=== PATIENT | female | born 1960 | race Asian ===

== ENCOUNTER 2019-08-05 17:51 | Inpatient (IN) | payer MEDICARE, MEDICAID ==
[~2019-08-05] VITALS: Ht 157.5 cm; Wt 54.0 kg
[2019-08-05] MEDS ORDERED: DIVA500T2 PO (17:59)
[2019-08-05] MEDS ORDERED: TEMA30CA PO (17:59)
[2019-08-05] MEDS ORDERED: CLONAZEPAM PO (17:59)
[2019-08-05] MEDS ORDERED: ZIPR80CA2 PO (17:59)
--- NOTE | 2019-08-05 18:10 | NUR ---
BIB PVT AMB FROM [facility] ON A 5150 HOLD FOR GD. A/OX3. SPEECH IS CLEAR, SPEAKS IN COMPLETE SENTENCES. NO ACUTE NEURO DEFICITS NOTED. RESPIRATORY EVEN AND UNLABORED, NO COUGH NO SOB. NO CARDIOVASCULAR DISTRESS NOTED, ALL PULSES PALPABLE. DENIES ANY N/V/D.
--- NOTE | 2019-08-05 18:31 | NUR ---
REPORT GIVEN TO WALT RUANO
[2019-08-05] MEDS ORDERED: MAGNESIUM HYDROXIDE 30 ML LIQUID UDC PO PRN (18:45)
[2019-08-05] MEDS ORDERED: BLOOD SUGAR DIAGNOSTIC 1 EACH STRIP VI ONE (18:45)
[2019-08-05] MEDS ORDERED: MAG HYDROX/AL HYDROX/SIMETH 30 ML LIQUID UDC PO PRN (18:45)
[2019-08-05 18:49] VITALS: BP 136/88
[2019-08-05] MEDS: LORAZEPAM 0.5 MG TABLET PO PRN (20:28)
--- NOTE | 2019-08-05 21:00 | NUR ---
GPS: Admitted to unit earlier a 58 yr.old female on a 72 hour hold for GD. Pt.is under the care of (psychiatrist). Pt. has been agitated,paranoid and unable to provide a viable plan of self care ,per hold. Pt.is uncooperative,anxious, bizarre,positive for AH/V/H and attention-seeking. A/O x2. Poor insight to present situation. Needs frequent re-direction from staff. Pt's advisement and pt's rights handbook given to pt. Instructed on meal schedules,visiting hours,phone use and what's expected from her. Pt's mother "Maryann"made aware of pt's admission to the unit with pt's consent. Safety emphasized. Will monitor behavior closely.
[2019-08-05] MEDS: TEMAZEPAM 7.5 MG CAPSULE PO PRN (22:00)
[2019-08-06 07:30] VITALS: BP 113/45
[2019-08-06 15:09] VITALS: BP 90/56
[2019-08-06] MEDS: LORAZEPAM 0.5 MG TABLET PO PRN (16:07)
--- NOTE | 2019-08-06 16:26 | NUR ---
Initial discharge plan: Per pt, she lives alone in her personal apartment located at [facility] [address], [place] [address]; [phone]. However, pt states that she no longer feels safe living alone because "people come in and steal my things... I am not safe there." Pt would like help securing an assisted living facility after discharge. Building Maintenance Worker will plan to discuss placement options with pt for discharge planning. Building Maintenance Worker will continue to work on a safe and proper discharge plan for pt
--- NOTE | 2019-08-06 16:41 | NUR ---
food counter worker called pt's next of kin and person to notify on her face sheet, pts mother Maryann Sultana at [phone], however there was no answer and the voice mail was full. SW unable to leave voice mail message, SW will attempt to contact pts mother again at a later time.
[2019-08-06] MEDS: DIVALPROEX 250 MG TABLET.DR PO SCH (18:37)
[2019-08-06 20:03] VITALS: BP 116/56
[2019-08-06] MEDS: ZIPRASIDONE 20 MG CAPSULE PO SCH (20:12)
[2019-08-06] MEDS ORDERED: ZIPRASIDONE 80 MG CAPSULE PO SCH (21:00)
[2019-08-07] MEDS: TEMAZEPAM 7.5 MG CAPSULE PO PRN ×2 (00:32→23:20)
[2019-08-07] MEDS: ACETAMINOPHEN 325 MG TABLET PO PRN ×3 (00:36→16:27)
[2019-08-07 07:27] LABS: BASOPHILS % (AUTO) 0.5 % (0.0-2.0); EOSINOPHILS # (AUTO) 0.1 K/uL (0.0-0.7); EOSINOPHILS % (AUTO) 1.7 % (0.0-7.0); HEMATOCRIT 34.4 % (31.2-41.9); HEMOGLOBIN 11.6 g/dL (10.9-14.3); LYMPHOCYTES # (AUTO) 2.1 K/uL (20.0-40.0); LYMPHOCYTES % (AUTO) 35.7 % (20.5-51.5); MEAN CORPUSCULAR HEMOGLOBIN 30.6 uug (24.7-32.8); MEAN CORPUSCULAR HGB CONC 34 g/dL (32.3-35.6); MEAN CORPUSCULAR VOLUME 90.7 fL (75.5-95.3); MONOCYTES # (AUTO) 0.8 K/uL (2.0-10.0); MONOCYTES % (AUTO) 13.6 % (0.0-11.0); NEUTROPHILS # (AUTO) 2.9 K/uL (1.8-8.9); NEUTROPHILS % (AUTO) 48.5 % (38.5-71.5); PLATELET COUNT (AUTO) 287 K/uL (179-408); RED BLOOD CELL COUNT(AUTO) 3.79 MIL/uL (3.63-4.92)
[2019-08-07 07:39] LABS: CREATININE 0.8 mg/dL (0.6-1.3); MAGNESIUM 1.8 mg/dL (1.8-2.4); PHOSPHOROUS 4.3 mg/dL (2.5-4.9); POTASSIUM 4.2 mmol/L (3.5-5.1)
[2019-08-07 07:51] VITALS: BP 111/64
[2019-08-07] MEDS: DIVALPROEX 250 MG TABLET.DR PO SCH (08:34)
[2019-08-07] MEDS: ZIPRASIDONE 20 MG CAPSULE PO SCH ×2 (08:35→20:02)
[2019-08-07] MEDS: LORAZEPAM 0.5 MG TABLET PO PRN (10:04)
--- NOTE | 2019-08-07 15:40 | NUR ---
FIREARMS REPORT: Director Of Vocational Training completed and submitted a [employer] firearms report for 5150 grave disability certification. A copy of report has been placed in patient chart.
[2019-08-07 16:36] VITALS: BP 100/59
[2019-08-07] MEDS: DIVALPROEX 500 MG TABLET.DR PO SCH (16:40)
[2019-08-07] MEDS ORDERED: DIVALPROEX 250 MG TABLET.DR PO SCH (17:00)
[2019-08-07 21:00] VITALS: BP 140/54
--- NOTE | 2019-08-07 22:00 | NUR ---
received to care, highly visible on unit, needy, hypersexual, hyperverbal, attention seeking, but pleasant upon approach. makes many multiple requests. needs frequent limit setting. as of 2199, she remains awake. no distress noted.
--- NOTE | 2019-08-07 23:20 | NUR ---
PRN restoril given for insomnia
--- NOTE | 2019-08-08 01:00 | NUR ---
appears to be asleep.
[2019-08-08] MEDS: LORAZEPAM 0.5 MG TABLET PO PRN ×3 (02:01→19:49)
--- NOTE | 2019-08-08 02:01 | NUR ---
PRN ativan given for restlessness
[2019-08-08] MEDS: ACETAMINOPHEN 325 MG TABLET PO PRN (05:01)
--- NOTE | 2019-08-08 06:00 | NUR ---
slept 1.5 hours total.
[2019-08-08 07:30] VITALS: BP 114/61
[2019-08-08] MEDS: DIVALPROEX 500 MG TABLET.DR PO SCH ×2 (09:09→17:04)
[2019-08-08] MEDS: ZIPRASIDONE 20 MG CAPSULE PO SCH ×2 (09:09→20:38)
--- NOTE | 2019-08-08 16:00 | NUR ---
Gps/Textile Chemist- Attended group therapy, likes to listen to music per patient. Medications compliant . Making her needs known to staff. Easily gets anxious , gets restless, and figity, redirectable.
[2019-08-08 16:23] VITALS: BP 103/46
[2019-08-08 21:00] VITALS: BP 116/63
--- NOTE | 2019-08-08 22:00 | NUR ---
received to care, appearing angry, verbally hostile, difficult to redirect. PRN samy was given at 1948. around 2029, she came out of her room, yelling and cursing at staff, posturing with closed fists. pt was redirected back to her room, and calmed down on her own, and even apologized for her previous behaviors. as of 2199, she appears to be asleep. no distress noted. will continue to monitor closely.
[2019-08-09] MEDS: TEMAZEPAM 7.5 MG CAPSULE PO PRN ×2 (01:58→22:12)
--- NOTE | 2019-08-09 01:58 | NUR ---
pt is now awake, requesting snacks, which she was given, along with PRN restoril, for insomnia. she is currently in her room, eating. no distress noted. will continue to monitor closely.
[2019-08-09] MEDS: LORAZEPAM 0.5 MG TABLET PO PRN ×3 (03:17→19:44)
--- NOTE | 2019-08-09 03:17 | NUR ---
remains awake, but slightly calmer. PRN ativan was given at her request.
--- NOTE | 2019-08-09 06:00 | NUR ---
slept 6.25 hours. continues to sleep. no distress noted.
[2019-08-09 07:24] LABS: BILIRUBIN,TOTAL 0.2 mg/dL (0.2-1.0); CREATININE 0.7 mg/dL (0.6-1.3); POTASSIUM 4.5 mmol/L (3.5-5.1); TOTAL PROTEIN, SERUM 6.5 g/dL (6.4-8.2)
[2019-08-09 07:30] VITALS: BP 95/66
[2019-08-09 07:31] LABS: BASOPHILS # (AUTO) 0.1 K/uL (0.0-8.0); BASOPHILS % (AUTO) 1.2 % (0.0-2.0); EOSINOPHILS # (AUTO) 0.1 K/uL (0.0-0.7); EOSINOPHILS % (AUTO) 2.5 % (0.0-7.0); HEMATOCRIT 32.3 % (31.2-41.9); HEMOGLOBIN 10.7 g/dL (10.9-14.3); LYMPHOCYTES # (AUTO) 1.7 K/uL (20.0-40.0); LYMPHOCYTES % (AUTO) 40.5 % (20.5-51.5); MEAN CORPUSCULAR HGB CONC 33 g/dL (32.3-35.6); MEAN CORPUSCULAR VOLUME 93.4 fL (75.5-95.3); MONOCYTES # (AUTO) 0.5 K/uL (2.0-10.0); MONOCYTES % (AUTO) 12.8 % (0.0-11.0); NEUTROPHILS # (AUTO) 1.8 K/uL (1.8-8.9); PLATELET COUNT (AUTO) 261 K/uL (179-408); RED BLOOD CELL COUNT(AUTO) 3.46 MIL/uL (3.63-4.92)
[2019-08-09 07:39] LABS: WHITE BLOOD COUNT (AUTO) 4.3 K/uL (3.8-11.8)
[2019-08-09] MEDS: ZIPRASIDONE 20 MG CAPSULE PO SCH ×2 (08:38→21:06)
[2019-08-09] MEDS: DIVALPROEX 500 MG TABLET.DR PO SCH ×3 (08:38→21:06)
[2019-08-09 16:53] VITALS: BP 123/73
--- NOTE | 2019-08-09 17:00 | NUR ---
Gps/Technical Implementation Lead- Talkative, constantly talking , making funny gestures. Compliant with her routine meds. Needed redirections from time to time, kept asking for foods. Inappropriately laughing for no reasons.
[2019-08-09 20:08] VITALS: BP 124/49
[2019-08-10] MEDS: ACETAMINOPHEN 325 MG TABLET PO PRN ×3 (04:16→23:18)
[2019-08-10 07:30] VITALS: BP 104/79
[2019-08-10] MEDS: ZIPRASIDONE 20 MG CAPSULE PO SCH (08:21)
[2019-08-10] MEDS: DIVALPROEX 500 MG TABLET.DR PO SCH ×3 (08:21→20:34)
[2019-08-10] MEDS: OLANZAPINE 2.5 MG TABLET PO SCH ×2 (12:46→17:03)
[2019-08-10 16:00] VITALS: BP 108/52
--- NOTE | 2019-08-10 20:00 | NUR ---
RECEIVED PATIENT IN THE HALLWAY. SHE IS NOTED A/O X 2. INCONGRUENT AFFECT: LAUGHING INAPPROPRIATELY, HYPERVERBAL, FLIGHT OF IDEAS, BIZARRE MOVES AND FACIAL EXPRESSIONS. PATIENT IS SOMEWHAT REDIRECTABLE, SOMEWHAT BETTER. NO AGGRESSIVE/COMBATIVE BX NOTED AT THIS TIME. V/S STABLE AT THIS TIME. PT IS REASSURED FOR HER SAFETY. SAFETY AND FALL PRECAUTION IN PLACE. WILL CONTINUE TO MONITOR.
[2019-08-10 20:19] VITALS: BP 103/53
[2019-08-10] MEDS: OLANZAPINE 5 MG TABLET PO SCH (20:33)
[2019-08-10] MEDS: TEMAZEPAM 7.5 MG CAPSULE PO PRN (23:22)
[2019-08-11 08:26] VITALS: BP 120/69
[2019-08-11] MEDS: OLANZAPINE 2.5 MG TABLET PO SCH (09:51)
[2019-08-11] MEDS: DIVALPROEX 500 MG TABLET.DR PO SCH ×3 (09:51→20:48)
[2019-08-11] MEDS: OLANZAPINE 5 MG TABLET PO SCH ×3 (12:56→20:48)
[2019-08-11] MEDS ORDERED: OLANZAPINE 2.5 MG TABLET PO SCH (13:00)
[2019-08-11 18:14] VITALS: BP 120/40
--- NOTE | 2019-08-11 20:00 | NUR ---
RECEIVED PATIENT IN THE HALLWAY SITTING IN A CHAIR. SHE IS NOTED A/O X 2. CONTINUE HYPERVERBAL, INCONGRUENT MOOD AND LABILE. CONTINUE WITH BIZARRE BX. BIZARRE MOVEMENTS. UNPREDICTABLE. PATIENT TALKS TO HERSELF AND SHE APPEARS TO HEAR VOICES. PT DENIES SI/VH/HI/AH. V/S STABLE AT THIS TIME. PT IS REASSURED FOR HER SAFETY. SAFETY AND FALL PRECAUTION IN PLACE. WILL CONTINUE TO MONITOR.
[2019-08-11 20:07] VITALS: BP 116/87
[2019-08-12 07:30] VITALS: BP 112/58
[2019-08-12] MEDS: DIVALPROEX 500 MG TABLET.DR PO SCH ×3 (08:39→20:00)
[2019-08-12] MEDS: OLANZAPINE 5 MG TABLET PO SCH ×3 (08:39→20:00)
[2019-08-12 15:29] VITALS: BP 114/68
[2019-08-12 20:00] VITALS: BP 104/71
[2019-08-13 07:30] VITALS: BP 115/79
[2019-08-13] MEDS: DIVALPROEX 500 MG TABLET.DR PO SCH ×3 (08:55→20:11)
[2019-08-13] MEDS: OLANZAPINE 5 MG TABLET PO SCH ×3 (08:55→20:11)
[2019-08-13 15:20] VITALS: BP 138/86
[2019-08-13 20:21] VITALS: BP 127/70
[2019-08-13] MEDS: ACETAMINOPHEN 325 MG TABLET PO PRN (20:52)
[2019-08-13] MEDS: TEMAZEPAM 7.5 MG CAPSULE PO PRN (21:26)
[2019-08-14] MEDS: LORAZEPAM 0.5 MG TABLET PO PRN ×2 (01:20→08:56)
--- NOTE | 2019-08-14 05:27 | NUR ---
Patient up most of the night with a total of 4 hours sleep.Up and down hallway asking to shower, and many other small requests. Hyperverbal and in a manic state. Continually redirecting patient back to room and setting boundaries. Patient is laying down at this time, no distress noted.
[2019-08-14] MEDS: OLANZAPINE 5 MG TABLET PO SCH ×3 (07:40→20:22)
[2019-08-14 07:44] VITALS: BP 99/55
[2019-08-14] MEDS: DIVALPROEX 500 MG TABLET.DR PO SCH ×3 (08:11→20:22)
[2019-08-14 16:17] VITALS: BP 119/79
--- NOTE | 2019-08-14 16:45 | NUR ---
GPS: patient AOx2, compliant with medication,patient was able to redirected when patient starts to be intrusive in nursing station, denies SI and Hi, no distress noted
[2019-08-14 20:10] VITALS: BP 108/50
[2019-08-15] MEDS: TEMAZEPAM 7.5 MG CAPSULE PO PRN ×2 (00:58→22:57)
--- NOTE | 2019-08-15 07:40 | NUR ---
Recieved pt in her bed, awake, alert and orientedx3. Appears to be hyperactive but very pleasant. Pacing back and forth on the hallway. She is not harmful with anybody. Compliant.
[2019-08-15 07:56] VITALS: BP 99/52
[2019-08-15] MEDS: OLANZAPINE 5 MG TABLET PO SCH ×3 (08:00→20:12)
[2019-08-15 09:07] LABS: EOSINOPHILS # (AUTO) 0.1 K/uL (0.0-0.7); EOSINOPHILS % (AUTO) 2.3 % (0.0-7.0); HEMATOCRIT 34.9 % (31.2-41.9); HEMOGLOBIN 11.3 g/dL (10.9-14.3); LYMPHOCYTES # (AUTO) 1.6 K/uL (20.0-40.0); LYMPHOCYTES % (AUTO) 37.8 % (20.5-51.5); MEAN CORPUSCULAR HEMOGLOBIN 30.6 uug (24.7-32.8); MEAN CORPUSCULAR HGB CONC 33 g/dL (32.3-35.6); MEAN CORPUSCULAR VOLUME 94.3 fL (75.5-95.3); MONOCYTES # (AUTO) 0.5 K/uL (2.0-10.0); MONOCYTES % (AUTO) 12.2 % (0.0-11.0); NEUTROPHILS % (AUTO) 46.7 % (38.5-71.5); PLATELET COUNT (AUTO) 258 K/uL (179-408); WHITE BLOOD COUNT (AUTO) 4.3 K/uL (3.8-11.8)
[2019-08-15] MEDS: DIVALPROEX 500 MG TABLET.DR PO SCH ×3 (09:21→20:13)
[2019-08-15 09:52] LABS: BILIRUBIN,TOTAL 0.3 mg/dL (0.2-1.0); CREATININE 0.7 mg/dL (0.6-1.3)
--- NOTE | 2019-08-15 13:00 | NUR ---
Pt's mother and step father came in to visit her. Pt ate good lunch.
--- NOTE | 2019-08-15 15:19 | NUR ---
Received consult from Dr. Cheung. Pt is on a regular diet, no nutrition support. Addendum: 08/15/19 at [address] Amended: Links added.
[2019-08-15 16:00] VITALS: BP 101/72
[2019-08-15 20:34] VITALS: BP 124/76
--- NOTE | 2019-08-16 06:58 | NUR ---
PT SLEPT 6.45 HOURS. PT SHOWS NO SIGNS OF ACUTE DISTRESS. PT COMPLIANT WITH CARE. PRESCRIBED MEDICATION GIVEN AND PT TOLERATED IT WELL. PT KEEPS COMING BACK AND FORTH TO THE NURSING STATION TO GET SOME SNACKS. SAFETY AND COMFORT PROVIDED. WILL ENDORSE TO INCOMING NURSE FOR CONTINUITY OF CARE.
[2019-08-16 07:30] VITALS: BP 94/46
[2019-08-16] MEDS: DIVALPROEX 500 MG TABLET.DR PO SCH ×3 (09:06→20:38)
[2019-08-16] MEDS: OLANZAPINE 5 MG TABLET PO SCH ×3 (09:07→20:37)
[2019-08-16 15:24] VITALS: BP 120/76
--- NOTE | 2019-08-16 20:00 | NUR ---
Patient received into care, standing at nursing station, alert/oriented x3. Patient has no complaints of pain or discomfort at this time. All safety and fall precaution measures are in place. Will continue to monitor.
[2019-08-16 20:25] VITALS: BP 116/65
[2019-08-16] MEDS: ACETAMINOPHEN 325 MG TABLET PO PRN (22:02)
--- NOTE | 2019-08-17 06:27 | NUR ---
Patient slept for 4.00 hours this shift with intermittent periods of wakefulness. Patient was seen speaking to illusions during this shift but was compliant with all aspects of care and medicine regimen. Patient has been easily redirectable when displaying inappropriate behaviors or verbalizing hypersexual comments. Patient complained of mouth pain at one time which was addressed with requested prescribed tylenol. All safety and fall precaution measures remain in place.
[2019-08-17 07:30] VITALS: BP 96/62
--- NOTE | 2019-08-17 07:30 | NUR ---
Recieved pt sitting in her room. Alert and orientedx3. Moods and behavior is very labile. Denies any suicidal ideation or thought to hurt others. Answers questions appropriately at this time.
[2019-08-17] MEDS: DIVALPROEX 500 MG TABLET.DR PO SCH ×3 (09:37→20:27)
[2019-08-17] MEDS: OLANZAPINE 5 MG TABLET PO SCH ×3 (09:37→20:27)
--- NOTE | 2019-08-17 13:00 | NUR ---
Pt is pacing back and forth in the hallway. Talks to herself occassionally but able to interact with others nicely.
[2019-08-17 15:09] VITALS: BP 106/64
--- NOTE | 2019-08-17 17:30 | NUR ---
Pt is self care and independent. Gait is steady. Denies of any c/o of pain.
[2019-08-17 23:18] VITALS: BP 117/65
--- NOTE | 2019-08-18 05:53 | NUR ---
Patient slept 5.30 hours. No issues or problems with behavior during the night. No distress. Patient back to bed at this time.
[2019-08-18 07:30] VITALS: BP 100/62
[2019-08-18] MEDS: OLANZAPINE 5 MG TABLET PO SCH ×3 (07:52→19:27)
[2019-08-18] MEDS: DIVALPROEX 500 MG TABLET.DR PO SCH ×3 (08:51→20:11)
--- NOTE | 2019-08-18 15:00 | NUR ---
Pt's parents came to visit Paulette. Pt was excited. According to mother, pt is not listening.
[2019-08-18 16:00] VITALS: BP 100/65
[2019-08-18 21:02] VITALS: BP 114/81
[2019-08-19 07:30] VITALS: BP 106/66
[2019-08-19] MEDS: OLANZAPINE 5 MG TABLET PO SCH ×3 (08:05→19:27)
[2019-08-19] MEDS: DIVALPROEX 500 MG TABLET.DR PO SCH ×3 (08:05→20:21)
[2019-08-19 15:15] VITALS: BP 106/68
--- NOTE | 2019-08-19 16:33 | NUR ---
Discharge Confirmation: bindery worker called logistics administrator Pj confirmed that pt will go to [facility], [[phone]], confirmed that pt will be accepted back to the facility once pt is ready to be discharged.
--- NOTE | 2019-08-19 18:32 | NUR ---
GPS: received patient AOx2-3, patient compliant to care and medication, denies SI and HI, able to redirect, patient stayed calm and cooperative throughout the day, no distress noted
[2019-08-19] MEDS: ACETAMINOPHEN 325 MG TABLET PO PRN (19:27)
[2019-08-19 20:00] VITALS: BP 110/71
--- NOTE | 2019-08-20 07:01 | NUR ---
PT SLEPT3.3 HOURS. PT IN NO ACUTE DISTRESS. PRESCRIBED MEDICATION GIVEN AND PT TOLERATED IT WELL. SAFETY AND COMFORT PROVIDED. WILL ENDORSE TO INCOMING NURSE FOR CONTINUITY OF CARE.
[2019-08-20 07:30] VITALS: BP 125/61
[2019-08-20] MEDS: OLANZAPINE 5 MG TABLET PO SCH ×2 (08:16→12:38)
--- NOTE | 2019-08-20 08:30 | NUR ---
Pt is awake, alert and oriented x3. Self care, ambulatory. No SI noted. Pt is pacing back and forth and at times laughs by herself but she is very pleasant.
--- NOTE | 2019-08-20 09:00 | NUR ---
Plan for discharge by 1500 per SW. Family notified and discharge order done by Dr Hanson.
--- NOTE | 2019-08-20 10:04 | NUR ---
DISCHARGE NOTE: Patient will be discharged to custodial facility, [facility] [[address], [place] [address]; ] via Ambulance transportation. Please arrange Ambulance transportation for patient to be picked up at 3:00pm. Band Attacher spoke with Juli [Baker Pie at [facility]; ([phone]], who stated patient will be accepted back at facility today. SW contacted pts, mother Enrique, ([phone]) and left a voicemail in regards to pts discharge. Patient is alert and oriented x3-4 and is unable to plan for self-care. Patient denies any suicidal or homicidal ideations. Patient is aware and agreeable with discharge plans. Patient will continue to follow-up with Psychiatrist Dr. Hanson and Paper Bag Making Machinist Dr. Alvarez at [facility] [[address], [place] [address]; ]. Patient was provided with mental health referrals to [facility] Crisis Line and the National Suicide Prevention Lifeline . Pt is congruent and cooperative.
[2019-08-20] MEDS: DIVALPROEX 500 MG TABLET.DR PO SCH (12:38)
--- NOTE | 2019-08-20 14:00 | NUR ---
Report given to Nancy renee the phone from [facility].
--- NOTE | 2019-08-20 15:00 | NUR ---
Pt is discharged to [facility] via ambulance. All belongings given back to pt. Condition is stable and pt understands where she is going. Family is aware.
== END 2019-08-20 15:00 | DRG 885 ==
LOC: ER 18:06 → GPS 18:20
PROVIDERS: ADMIT Psychiatry & Neurology Psychosomatic Medicine; ATTEND Internal Medicine
DX: F25.0 Schizoaffective disorder, bipolar type (principal); E44.1 Mild protein-calorie malnutrition; D53.9 Nutritional anemia, unspecified; Z79.899 Other long term (current) drug therapy; R26.81 Unsteadiness on feet; R53.1 Weakness; S06.9X0S Unspecified intracranial injury without loss of consciousness, sequela; Y09 Assault by unspecified means
CPT/HCPCS: 36415; 71045; 80164; 83735; 84100; 85025; 93005; A4663; J3490

== ENCOUNTER 2019-09-02 18:19 | Inpatient (IN) | payer MEDICARE, OTHER ==
[~2019-09-02] VITALS: Ht 165.1 cm; Wt 61.2 kg
[2019-09-02] MEDS ORDERED: DEPAKOTE (18:27)
[2019-09-02] MEDS ORDERED: ZYPREXA (18:27)
--- NOTE | 2019-09-02 18:35 | NUR ---
DR Gee seen and examined the pt.
--- NOTE | 2019-09-02 18:42 | NUR ---
Pt walked w/ steady gait to bathroom. Urine collected and sent to LAB.
[2019-09-02 18:52] LABS: BASOPHILS # (AUTO) 0.1 K/uL (0.0-8.0); BASOPHILS % (AUTO) 0.9 % (0.0-2.0); EOSINOPHILS # (AUTO) 0.2 K/uL (0.0-0.7); EOSINOPHILS % (AUTO) 2.9 % (0.0-7.0); HEMATOCRIT 33.6 % (31.2-41.9); HEMOGLOBIN 11.1 g/dL (10.9-14.3); LYMPHOCYTES # (AUTO) 2.2 K/uL (20.0-40.0); LYMPHOCYTES % (AUTO) 32.1 % (20.5-51.5); MEAN CORPUSCULAR HEMOGLOBIN 31.1 uug (24.7-32.8); MEAN CORPUSCULAR HGB CONC 33 g/dL (32.3-35.6); MEAN CORPUSCULAR VOLUME 93.8 fL (75.5-95.3); MONOCYTES # (AUTO) 0.9 K/uL (2.0-10.0); MONOCYTES % (AUTO) 12.6 % (0.0-11.0); NEUTROPHILS # (AUTO) 3.5 K/uL (1.8-8.9); NEUTROPHILS % (AUTO) 51.5 % (38.5-71.5); PLATELET COUNT (AUTO) 291 K/uL (179-408); RED BLOOD CELL COUNT(AUTO) 3.58 MIL/uL (3.63-4.92); WHITE BLOOD COUNT (AUTO) 6.9 K/uL (3.8-11.8)
--- NOTE | 2019-09-02 18:53 | NUR ---
[place] and fluid provided. Pt speaking on the phone.
--- NOTE | 2019-09-02 19:09 | NUR ---
Assumed care for patient, safe environment implemented. Pt on a 5150 for DTO. Pt alert, NAD, ambulatory with stable gait. VSS.
[2019-09-02 19:31] LABS: ALANINE AMINOTRANSFERASE 13 U/L (14-59); ALKALINE PHOSPHATASE 153 U/L (50-136); ASPARTATE AMINOTRANSFERASE 13 U/L (15-37); BILIRUBIN,DIRECT 0.1 mg/dL (0.0-0.2); BILIRUBIN,TOTAL 0.1 mg/dL (0.2-1.0); CARBON DIOXIDE 32 mmol/L (21-32); CHLORIDE 106 mmol/L (98-107); CREATININE 0.7 mg/dL (0.6-1.3); GLUCOSE 85 mg/dL (74-106); POTASSIUM 4.5 mmol/L (3.5-5.1); TOTAL PROTEIN, SERUM 7.3 g/dL (6.4-8.2); UREA NITROGEN, BLOOD 20 mg/dL (7-18)
[2019-09-02 19:33] LABS: ACETAMINOPHEN < 2.0 ug/mL (10-30)
[2019-09-02 19:35] LABS: ETHANOL < 3 MG/DL (0-0)
[2019-09-02 19:37] LABS: *CLARITY,URINE CLEAR (CLEAR); *COLOR,URINE YELLOW (YELLOW); *KETONES,URINE NEGATIVE (NEGATIVE); *UROBILINOGEN,URINE 0.2 E.U./dl (NORMAL); LEUKOCYTE ESTERASE ,URINE TRACE (NEGATIVE); NITRITE, URINE NEGATIVE (NEGATIVE); UGLUCOSE NEGATIVE (NEGATIVE)
[2019-09-02 19:45] LABS: *AMPHETAMINE, URINE NEGATIVE (NEGATIVE); *BARBITURATE, URINE NEGATIVE (NEGATIVE); *CANNABINOID, URINE NEGATIVE (NEGATIVE); *COCCAINE, URINE NEGATIVE (NEGATIVE); *OPIATE, URINE NEGATIVE (NEGATIVE); *PHENCYCLIDINE SCREEN,URINE NEGATIVE (NEGATIVE)
--- NOTE | 2019-09-02 19:48 | NUR ---
Pt. admitted to MHU , under care of Dr. Hanson/Dr. Amador Belongs List completed, MRSA swab done. Report given to Shira ARRINGTON
[2019-09-02 19:50] LABS: *BILIRUBIN,URIN NEGATIVE (NEGATIVE); *BLOOD, URINE NEGATIVE (NEGATIVE); BACTERIA,URINE NONE SEEN /HPF (NONE SEEN); RBC,URINE 0-3 /HPF (0-3); SQUAMOUS EPITHELIAL CELL,UR FEW /HPF (NONE SEEN); WBC,URINE 0-3 /HPF (0-3)
[2019-09-02 19:51] LABS: MUCUS,URINE FEW /LPF (0-FEW)
[2019-09-02] MEDS ORDERED: MAGNESIUM HYDROXIDE 30 ML LIQUID UDC PO PRN (20:15)
[2019-09-02] MEDS ORDERED: TEMAZEPAM 7.5 MG CAPSULE PO PRN (20:15)
[2019-09-02] MEDS ORDERED: MAG HYDROX/AL HYDROX/SIMETH 30 ML LIQUID UDC PO PRN (20:15)
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
--- NOTE | 2019-09-02 21:45 | NUR ---
Utility Bill Complaints Investigator Neftali notified of Pt admission, (+)UA, and the need for H&P.
[2019-09-03 00:56] VITALS: BP 130/71
--- NOTE | 2019-09-03 07:55 | NUR ---
approach patient and requested to surrender her contraband to the unit , patient wears 2 pairs of earrings , patient refused to surrender after explaining the Unit policy, ask for assistance with security to retrieve contraband, place contraband to the safe and accounted for, gave the yellow receipt to patient which patient threw away in the trash, patient exhibit manic behavior, will continue monitor
[2019-09-03] MEDS: LORAZEPAM 0.5 MG TABLET PO PRN (10:36)
[2019-09-03] MEDS: ACETAMINOPHEN 325 MG TABLET PO PRN (10:36)
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
--- NOTE | 2019-09-03 11:22 | NUR ---
Social work note/Facility Contact: silo worker contacted Radha from [facility], ([phone]) who expressed patient is welcomed back upon discharge.
--- NOTE | 2019-09-03 12:00 | NUR ---
Social work note/Family contact: chemical tank worker contacted patients mother Maryann, ([phone]) and left a voicemail in regards to patients treatment and discharge plan.
--- NOTE | 2019-09-03 14:22 | NUR ---
GPS: Nursing Notes: Destructive Behavior toward Others: Patient is awake and responding to her name, uncooperative with nursing care, poor anger management, poor impulse control, resistant with nursing care, loud and angry affect, hyperverbal, paranoid behavior, believes that we are stealing from her, verbal abusive, using profanities toward staff, internally preoccupied, talking and shouting to unseen others in her room, labile, unpredictable behavior, episodes of violent outburst without provocation, shouting and screaming in the middle of the hallway, threatening staff, "I am going to kill... ", also, stating "I don't want to live anymore... I have no reason to live..", episodes of laughing inappropriately, loud and disruptive, unable to formulate a viable plan for self care, continue with treatment plan.
[2019-09-03] MEDS: OLANZAPINE ZYDIS 5 MG TAB.RAPDIS PO SCH ×2 (15:24→20:06)
[2019-09-03] MEDS: DIVALPROEX 500 MG TABLET.DR PO SCH ×2 (15:24→20:06)
[2019-09-03 16:31] VITALS: BP 100/60
[2019-09-03 20:00] VITALS: BP 106/73
[2019-09-04 08:04] VITALS: BP 116/73
[2019-09-04] MEDS: DIVALPROEX 500 MG TABLET.DR PO SCH (09:20)
[2019-09-04] MEDS: OLANZAPINE ZYDIS 5 MG TAB.RAPDIS PO SCH ×2 (09:21→20:00)
--- NOTE | 2019-09-04 12:16 | NUR ---
Social Work Note/Family Contact: eligibility worker contacted patient mother Maryann, ([phone]) and left a voicemail in regards to patients status.
[2019-09-04 16:00] VITALS: BP 101/51
[2019-09-04 21:00] VITALS: BP 105/64
[2019-09-04] MEDS ORDERED: DIVALPROEX 250 MG TABLET.DR PO SCH (21:00)
[2019-09-05 07:30] VITALS: BP 112/76
--- NOTE | 2019-09-05 07:30 | NUR ---
Patient calm and comfortable with no signs of distress; patient hyperverbal ; patient will continue to be monitored.
[2019-09-05] MEDS: OLANZAPINE ZYDIS 5 MG TAB.RAPDIS PO SCH ×2 (08:49→20:02)
[2019-09-05] MEDS: DIVALPROEX 500 MG TABLET.DR PO SCH ×2 (08:52→20:01)
[2019-09-05] MEDS: LORAZEPAM 0.5 MG TABLET PO PRN (11:13)
[2019-09-05] MEDS: ACETAMINOPHEN 325 MG TABLET PO PRN (13:38)
[2019-09-05 16:00] VITALS: BP 121/78
--- NOTE | 2019-09-05 18:30 | NUR ---
Patient with no signs of distress through out shift; patient hyperverbal at times. Patient medication compliant ; patient asked for food multiple times through out shift. patient with stable vital signs ; Report given to oncoming nurse.
[2019-09-05] MEDS ORDERED: DIVALPROEX 250 MG TABLET.DR PO SCH (21:00)
[2019-09-05 21:08] VITALS: BP 118/74
[2019-09-06 07:30] VITALS: BP 118/73
[2019-09-06] MEDS: OLANZAPINE ZYDIS 5 MG TAB.RAPDIS PO SCH ×2 (09:45→20:28)
[2019-09-06] MEDS: DIVALPROEX 500 MG TABLET.DR PO SCH ×2 (09:46→20:28)
[2019-09-06] MEDS: risperiDONE-M 0.5 MG TAB.RAPDIS PO SCH ×2 (11:42→20:28)
[2019-09-06 16:56] VITALS: BP 129/84
[2019-09-06 20:22] VITALS: BP 124/76
[2019-09-07] MEDS: ACETAMINOPHEN 325 MG TABLET PO PRN ×2 (02:28→12:53)
--- NOTE | 2019-09-07 02:30 | NUR ---
patient c/o gen: pain. tylenol 650 mg po given per patient requested,
--- NOTE | 2019-09-07 03:30 | NUR ---
GPS: Patient stated i am feeling better. prn effective for pain.
--- NOTE | 2019-09-07 05:54 | NUR ---
GPS: Remain uncooperative with care. poor anger management, poor impulse control, resistant with nursing care, loud and angry affect, hyperverbal, paranoid behavior, believes that we are stealing from her, verbal abusive, using profanities toward staff, internally preoccupied, talking and shouting to unseen others in her room, labile, unpredictable behavior. episodes of laughing inappropriately, loud and disruptive, unable to formulate a viable plan for self care, continue plan of care.
--- NOTE | 2019-09-07 05:57 | NUR ---
slept 3 hrs through the night.
[2019-09-07 08:05] LABS: BASOPHILS % (AUTO) 0.8 % (0.0-2.0); EOSINOPHILS # (AUTO) 0.1 K/uL (0.0-0.7); EOSINOPHILS % (AUTO) 2.1 % (0.0-7.0); HEMATOCRIT 33.6 % (31.2-41.9); HEMOGLOBIN 11.2 g/dL (10.9-14.3); LYMPHOCYTES # (AUTO) 1.5 K/uL (20.0-40.0); MEAN CORPUSCULAR HEMOGLOBIN 30.6 uug (24.7-32.8); MEAN CORPUSCULAR HGB CONC 33 g/dL (32.3-35.6); MEAN CORPUSCULAR VOLUME 91.7 fL (75.5-95.3); MONOCYTES # (AUTO) 0.8 K/uL (2.0-10.0); MONOCYTES % (AUTO) 13.9 % (0.0-11.0); NEUTROPHILS # (AUTO) 3.2 K/uL (1.8-8.9); NEUTROPHILS % (AUTO) 56.2 % (38.5-71.5); PLATELET COUNT (AUTO) 295 K/uL (179-408); RED BLOOD CELL COUNT(AUTO) 3.67 MIL/uL (3.63-4.92); WHITE BLOOD COUNT (AUTO) 5.7 K/uL (3.8-11.8)
[2019-09-07 08:20] VITALS: BP 118/78
[2019-09-07 08:27] LABS: BILIRUBIN,TOTAL 0.2 mg/dL (0.2-1.0); CREATININE 0.5 mg/dL (0.6-1.3); POTASSIUM 4.4 mmol/L (3.5-5.1); TOTAL PROTEIN, SERUM 7.4 g/dL (6.4-8.2)
[2019-09-07] MEDS: risperiDONE-M 0.5 MG TAB.RAPDIS PO SCH ×2 (08:34→20:35)
[2019-09-07] MEDS: DIVALPROEX 500 MG TABLET.DR PO SCH ×2 (08:34→20:35)
[2019-09-07] MEDS: OLANZAPINE ZYDIS 5 MG TAB.RAPDIS PO SCH ×2 (08:34→20:34)
[2019-09-07] MEDS: LORAZEPAM 0.5 MG TABLET PO PRN (12:53)
[2019-09-07 16:35] VITALS: BP 116/70
[2019-09-07 20:13] VITALS: BP 105/58
[2019-09-07 21:00] VITALS: BP 118/66
--- NOTE | 2019-09-08 05:56 | NUR ---
GPS: Remain calm and cooperative with meds and care. no c/o pain or discomfort at this time. slept 5:30 hrs through the night. patient is ambulatory self care. resting in bed comfortably. continue plan of care.
[2019-09-08] MEDS: risperiDONE-M 0.5 MG TAB.RAPDIS PO SCH ×2 (08:11→20:11)
[2019-09-08] MEDS: OLANZAPINE ZYDIS 5 MG TAB.RAPDIS PO SCH ×2 (08:12→20:11)
[2019-09-08] MEDS: DIVALPROEX 500 MG TABLET.DR PO SCH ×2 (08:12→20:12)
[2019-09-08 08:31] VITALS: BP 116/75
[2019-09-08 20:00] VITALS: BP 117/65
--- NOTE | 2019-09-09 01:46 | NUR ---
GPS: Pt.observed to be awake still at this time. Refused Restoril 7.5mg when offered. Quiet environment provided to facilitate sleep. Re-directed prn.
[2019-09-09 08:00] VITALS: BP 114/60
[2019-09-09] MEDS: risperiDONE-M 0.5 MG TAB.RAPDIS PO SCH ×2 (08:08→20:11)
[2019-09-09] MEDS: DIVALPROEX 500 MG TABLET.DR PO SCH ×2 (08:08→20:12)
[2019-09-09] MEDS: OLANZAPINE ZYDIS 5 MG TAB.RAPDIS PO SCH ×2 (08:08→20:11)
[2019-09-09] MEDS: ACETAMINOPHEN 325 MG TABLET PO PRN ×2 (08:08→17:10)
--- NOTE | 2019-09-09 10:05 | NUR ---
Social Work Note/Patient Contact: mud car worker met with patient and provided brief supportive counseling. Patient expressed feeling fearful at nights. mud car worker advised patient if feeling fearful to ask help.
[2019-09-09 16:39] VITALS: BP 112/63
[2019-09-09] MEDS: LORAZEPAM 0.5 MG TABLET PO PRN (17:10)
[2019-09-09 20:00] VITALS: BP 109/68
[2019-09-10 07:30] VITALS: BP 111/68
[2019-09-10] MEDS: OLANZAPINE ZYDIS 5 MG TAB.RAPDIS PO SCH (08:13)
[2019-09-10] MEDS: risperiDONE-M 0.5 MG TAB.RAPDIS PO SCH (08:13)
[2019-09-10] MEDS: DIVALPROEX 500 MG TABLET.DR PO SCH (08:13)
[2019-09-10] MEDS: ACETAMINOPHEN 325 MG TABLET PO PRN (08:13)
--- NOTE | 2019-09-10 09:09 | NUR ---
Social Work Note/PC Hearing Notification: Patients hearing was cancelled due to patient being discharged.
--- NOTE | 2019-09-10 10:06 | NUR ---
Social Work Note/DISCHARGE: Patient will be discharged to fdc facility, [facility] [id number] [place] [id number]; ) via Ambulance transportation. Please arrange Ambulance transportation for patient to be picked up at 3:00pm. Active Directory Specialist spoke with José Customer Success Manager at [facility]; ([phone]), who stated patient will be accepted back at facility today. Per patients Mother Maryann, ([phone]) has been made aware and agreeable with discharge plans. Patient is alert and oriented x2-3 and is unable to plan for self-care. Patient denies any suicidal or homicidal ideations. Patient is aware and agreeable with discharge plans. Patient will continue to follow-up with Psychiatrist Dr. Hanson and Sole Leveling Machine Operator Dr. Alvarez at [facility] [address] [place] [address]; . Patient was provided with mental health referrals to [facility] Crisis Line and the National Suicide Prevention Lifeline . Patient presents with euthymic and congruent mood.
--- NOTE | 2019-09-10 10:15 | NUR ---
FIREARMS REPORT: Clam Dredge Boat Captain completed and submitted a [employer] firearms report for 5150 grave disability certification. A copy of report has been placed in patient chart.
--- NOTE | 2019-09-10 10:32 | NUR ---
Social Work Note/Family Contact: cellophane worker contacted patients mother Maryann, ([phone]) and left a voicemail and shared that patient will be discharged to [facility].
[2019-09-10] MEDS ORDERED: risperiDONE-M 0.5 MG TAB.RAPDIS PO SCH (13:00)
--- NOTE | 2019-09-10 13:47 | NUR ---
Social Work Note/Discharge Plan Update: cinder worker spoke to Daysi, ([phone]) from [facility] and will metal pickling equipment operator patient at 4PM and will go to [facility] [address] [place] [address]; ([phone]).
[2019-09-10 15:11] VITALS: BP 115/61
--- NOTE | 2019-09-10 16:00 | NUR ---
GPS: Nursing Notes: Discharge Notes: Patient is awake and responding to her name, cooperative with nursing care, compliant with her medications, following staff directions, denies any SI/HI, denies any AH/VH, denies any pain or discomfort, denies any SOB, discharge to [facility] at [address] [place] [address] , report given to Pilar RN vehicle maintenance supervisor, took all her belongings with her, transported to facility via [facility] . Patient will continue to follow-up with Psychiatrist Dr. Hanson and Dining Room Tables Set Up Attendant Dr. Alvarez at [facility] [address] [place] [address]; . Patient was provided with mental health referrals to [facility] Crisis Line and the National Suicide Prevention Lifeline . Patient presents with euthymic and congruent mood.
[2019-09-10] MEDS ORDERED: OLANZAPINE ZYDIS 5 MG TAB.RAPDIS PO SCH (17:00)
[2019-09-10] MEDS ORDERED: risperiDONE 0.25 MG TABLET PO SCH (21:00)
[2019-09-10] MEDS ORDERED: risperiDONE 1 MG TABLET PO SCH (21:00)
== END 2019-09-10 16:00 | DRG 885 ==
LOC: ER 18:19 → GPS 20:00
PROVIDERS: ADMIT Psychiatry & Neurology Psychosomatic Medicine; ATTEND Nurse Practitioner Acute Care
DX: F25.0 Schizoaffective disorder, bipolar type (principal); Z91.14 Patient's other noncompliance with medication regimen; Z88.0 Allergy status to penicillin; R94.31 Abnormal electrocardiogram [ECG] [EKG]
CPT/HCPCS: 36415; 71045; 80164; 80307; 85025; 93005; A4663; G0480; G0480-TC; J3490